=== PATIENT | male | born 1990 | race Caucasian/White ===

== ENCOUNTER 2024-01-14 11:40 | Outpatient (AMB) | payer OTHER, SELFPAY ==
[2024-01-14 11:43] VITALS: BP 118/90; PULSE 83; TEMP 36.2; O2SAT 98; BMI 34.9
--- NOTE | 2024-01-14 11:43 | MHC.OFFWIV ---
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 He states he was awakened by the pain but does not recall any injury or trauma to the area he has no swelling or erythema noted but he is in severe pain in the office today PFSH Social History Patient Tobacco Use Status: Current everyday Tobacco user Review of Systems Const All systems reviewed & are unremarkable except as noted in HPI and below Physical Exam Extrem General: Yes normal to inspection Left upper extremity: normal to inspection, full ROM (Limited to 0 due to pain) and wrist (Severe tenderness to palpation) Results Reviewed Results Reviewed: Review of his x-ray today shows an abnormality on his distal radius and possibly scaphoid. I put him in a protective thumb spica splint and referred to Orthopedics for evaluation Assessment & Plan Assessment & Plan (1) Left wrist pain: Code(s): M25.532 - Pain in left wrist Plan: The patient will wear his thumb spica splint and be seen by Orthopedics Plan See plan Orders: Orders XR wrist LT w scaphoid Today M25.532 - Pain in left wrist Referrals Orthopedics Referral M25.532 - Pain in left wrist Coding Level of Care Code Est Pt Level 3 (97009) Diagnoses Left wrist pain M25.532
== END 2024-01-14 13:20 | disposition home or self-care (01) ==
PROVIDERS: Visit Provider Physician Assistant Medical
DX: M25.532 Pain in left wrist (principal)
CPT/HCPCS: 99213

== ENCOUNTER 2024-01-14 11:52 | Outpatient (REF) | payer OTHER, SELFPAY ==
--- NOTE | ~2024-01-14 | XR_ITS ---
EXAMINATION: left wrist series CLINICAL INFORMATION: Pain in the left wrist COMPARISON: None. TECHNIQUE: Views of the left wrist including scaphoid view FINDINGS: The bones joints and soft tissues are normal. No fracture. XR/XR wrist LT w scaphoid IMPRESSION: Normal left wrist.
== END 2024-01-14 11:53 | disposition home or self-care (01) ==
LOC: HO.HMGCX 11:52
PROVIDERS: Visit Provider Physician Assistant Medical
DX: M25.532 Pain in left wrist (principal)
CPT/HCPCS: 73110

== ENCOUNTER 2024-02-04 14:00 | Outpatient (AMB) | payer OTHER, SELFPAY ==
--- NOTE | 2024-02-04 14:17 | AM.OFFWIN_ITS ---
Intake Vital Signs 02/04/24 14:18 Height 5 ft 6 in Weight 216 lb BMI 34.9 BP 120/80 Blood Pressure Location Lt brachial Position Sitting Pulse 76 Pulse Source Pulse Oximeter Temp 98.4 F Temp Source Oral Pulse Oximetry (%) 97 Oxygen Delivery Method Room Air Intake Visit Reasons: EP WC vent crashed down on head shoulder Intake Note: pt is here for workers comp claim, patient states a vent fell down on his head/shoulders while at work Patient Tobacco Use Status: Current everyday Tobacco user Allergies No Known Allergies Allergy (Verified 02/04/24 14:18) Do you need a note to return to daycare/school/sports/work: Yes HPI EP WC vent crashed down on head shoulder HPI Details This is a 33 year old male patient who presents today following a work injury which occurred last night 02/03/24. 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 He states is grazed the back of his neck and also his right ankle, however his left arm is most bothersome. Denies any lacerations from incident. He is able to move arm however it is painful. [facility] Social History Patient Tobacco Use Status: Current everyday Tobacco user Review of Systems Const All systems reviewed & are unremarkable except as noted in HPI and below Physical Exam Vital Signs: Last Vital Signs Temp 98.4 F 02/04/24 14:18 Pulse 76 02/04/24 14:18 BP 120/80 02/04/24 14:18 Pulse Ox 97 02/04/24 14:18 Oxygen Delivery Method Room Air 02/04/24 14:18 BMI result Body Mass Index 34.9 Const General: cooperative and no acute distress Nutritional Appearance: average body habitus HEENT Other: no bruising, abrasions or lacerations to head or neck Head: Yes normal to inspection, Yes normocephalic and Yes atraumatic Ears: hearing grossly normal bilaterally Neck Neck: Yes full ROM Resp Effort & Inspection: normal respiratory effort Auscultation: clear to auscultation bilaterally Cardio Rate: regular rate Rhythm: regular rhythm Skin General skin exam: no rashes or lesions noted Extrem Left upper extremity: normal to inspection, full ROM, normal capillary refill, no joint enlargement, shoulder/upper arm Details: tenderness Location: of the mid-shaft humerus and over the biceps tendon and hand Details: normal capillary refill, neuromotor exam normal Details: wrist extension normal, thumb opposition normal and thumb ADduction normal and vascular exam Details: radial pulse present and ulnar pulse present Psych Appearance: grossly normal Mental Status: mental status grossly normal Speech and movement: Normal speech and movement present Assessment & Plan Assessment & Plan (1) Left upper arm injury: Code(s): S49.92XA - Unspecified injury of left shoulder and upper arm, initial encounter Qualifiers: Encounter type: initial encounter Qualified Code(s): S49.92XA - Unspecified injury of left shoulder and upper arm, initial encounter Plan: No fracture on XR. Reassured patient this is likely soft tissue injury. Advised ice, elevation, NSAIDs (will prescribe), and gentle ROM as tolerated. No other injuries identified on exam. Work note provided. If he does not improve with time and conservative measures, he can return to the clinic for further evaluation. He agrees to plan. Patient requesting refill for pro-air inhaler. He does not have a PCP at this time and inhaler for asthma is running low. Will refill this. Orders: Orders XR humerus LT Today S49.92XA - Unspecified injury of left shoulder and upper arm, initial encounter Medications: New meloxicam Take once a day for up to 7 days as needed for pain/inflammation. 15 mg PO DAILY 7 days 7 tabs 0RF S49.92XA - Unspecified injury of left shoulder and upper arm, initial encounter albuterol sulfate 90 mcg/actuation 1 inh inhalation Q4-6H PRN 1 ea 0RF shortness of breath or wheezing J45.909 - Unspecified asthma, uncomplicated Coding Level of Care Code Est Pt Level 4 (01828) Diagnoses Injury of left upper arm, initial encounter S49.92XA Encounter type: initial encounter
[2024-02-04 14:18] VITALS: BP 120/80; PULSE 76; TEMP 36.9; O2SAT 97; BMI 34.9
== END 2024-02-04 15:20 | disposition home or self-care (01) ==
PROVIDERS: Visit Provider Nurse Practitioner Family
DX: S49.92XA Unspecified injury of left shoulder and upper arm, initial encounter (principal); Z04.2 Encounter for examination and observation following work accident
CPT/HCPCS: 99214

== ENCOUNTER 2024-02-04 14:58 | Outpatient (REF) | payer OTHER, SELFPAY ==
--- NOTE | ~2024-02-04 | XR_ITS ---
EXAMINATION: XR HUMERUS, LEFT CLINICAL INFORMATION: Injury left shoulder upper arm COMPARISON: None available. TECHNIQUE: AP and lateral views of the left humerus. FINDINGS: Small 4 mm calcific patient overlying the proximal right humerus anteriorly. Bones joints and soft tissues otherwise unremarkable XR/XR humerus LT IMPRESSION: 1. No acute abnormality. 2. Calcific density overlying the proximal right humerus. This could reflect calcific tendinitis of the subscapularis tendon or dystrophic calcification in the surrounding soft tissues.
== END 2024-02-04 14:59 | disposition home or self-care (01) ==
LOC: HO.HMGCX 14:58
PROVIDERS: Visit Provider Nurse Practitioner Family
DX: S49.92XA Unspecified injury of left shoulder and upper arm, initial encounter (principal)
CPT/HCPCS: 73060

== ENCOUNTER 2025-04-09 04:05 | Emergency (ER) | payer OTHER, SELFPAY ==
[2025-04-09 04:10] VITALS: PULSE 114; RESP 16; TEMP 36.4; O2SAT 96; BMI 37.6
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
--- OUTSIDE RECORDS SUMMARY | 2025-04-09 04:39 | XMS_ITS | Encounter Summary ---
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 7-8 cig daily Alcohol Use Standard Drinks/Week Comments Not Asked 0 (1 standard drink = 0.6 oz pur e alcohol) Sex Assigned at Date Recorded Not on file documented as of this encounter Plan of Treatment Not on file documented as of this encounter Visit Diagnoses Not on filedocumented in this encounter Care Teams Real Estate Branch Manager Relationship Specialty Start Date End Date Keon Araujo MD [address] [place] [address] PCP - General Internal Medicine 03/11/15 05/28/22 Barry Cook MD [address] [place] [id number] PCP - General Internal Medicine 05/29/22 documented as of this encounter
--- OUTSIDE RECORDS SUMMARY | 2025-04-09 04:39 | XMS_ITS | Clinical Summary ---
Author Organization [address] Address [address] [place] [phone] Phone Care Team Providers Care Interactive Media Specialist Name Role Phone Barry Cook MD Primary Care Pr ovider Allergies Active Allergy Reactions Criticality Noted Date Comments Gluten 08/10/2024 House Dust 08/23/2017 Lactase 02/25/2025 Lactose 08/23/2017 Pollen Extracts 08/23/2017 Medications albuterol HFA (PROAIR HFA ; PROVENTIL HFA ; VENTOLIN HFA) 90 mcg/actuation inhalerIndication s:Mild persistent asthma without complication Inhale 2 puffs by mouth every 4 (four) hours if needed for wheezing. 18 g 1 5 Active fluticasone-salme terol (ADVAIR DISKUS) 250-50 mcg/dose diskus inhalerIndication s:Mild persistent asthma without complication Inhale 1 puff by mouth 2 (two) times a day. Rinse mouth with water after use to reduce aftertaste and incidence of candidiasis. Do not swallow. 1 each 1 5 02/26/20 26 Active rOPINIRole (REQUIP) 1 mg tabletIndications :restless leg syndrome Take 1 tablet (1 mg total) by mouth at bedtime. 90 each 5 05/26/20 25 Active aspirin 81 mg EC tabletIndications :Chronic chest pain Take 1 tablet (81 mg total) by mouth 1 (one) time each day. 90 tablet 1 5 Active Active Problems Problem Noted Date Diagnosed Date Rectal bleeding 02/25/2025 Assessment & Plan (02/25/2025 12:26 PM EDT): Again referred to GI. See HPI Orders: Ambulatory referral to Gastroenterology; Future Schizoaffective disorder (CMS/HCC V24, CMS/HCC V 28) 07/23/2024 Assessment & Plan (07/23/2024 5:31 PM EST): As above Restless leg syndrome 07/23/2024 Assessment & Plan (02/25/2025 12:26 PM EDT): He had side effects from gabapentin. Will trial ropinirole nightly Orders: rOPINIRole (REQUIP) 1 mg tablet; Take 1 tablet (1 mg total) by mouth at bedtime. Assessment & Plan (07/23/2024 5:31 PM EST): Will consider gabapentin pending labs. Orders: Ferritin; Future Iron and TIBC; Future Tobacco use disorder 07/23/2024 Assessment & Plan (02/25/2025 12:26 PM EDT): Reports that he Quit smoking on Friday (02/20/25). Congratulated on this Assessment & Plan (07/23/2024 5:31 PM EST): Smoking cessation counselling provided Orders: nicotine polacrilex (NICORETTE) 2 mg gum; Place 1 each (2 mg total) into mouth between cheek and gum every 2 (two) hours if needed for smoking cessation. Subclinical hypothyroidism 07/23/2024 Assessment & Plan (02/25/2025 12:26 PM EDT): Due for repeat labs which are ordered Orders: Thyroid stimulating hormone with reflex to free t4 and free t3; Future Thyroid peroxidase antibody; Future Hepatomegaly 07/22/2024 Assessment & Plan (02/25/2025 12:26 PM EDT): Likely related to excessive alcohol use. Not ready to quit drinking at this time. Referred to GI Orders: Ambulatory referral to Gastroenterology; Future Alcohol use disorder 07/22/2024 Assessment & Plan (02/25/2025 12:26 PM EDT): Alcohol cessation counseling was provided. He was encouraged to check into a detox facility to be able to wean off the alcohol safely due to history of withdrawal symptoms including tremors. He states that he is not ready to quit alcohol at this time. Counseled that the alcohol use is likely contributing to his chest pains, abdominal issues, rectal bleeding. He still reports that he is not ready to quit Alcoholic fatty liver 07/22/2024 Assessment & Plan (02/25/2025 12:26 PM EDT): As above Orders: Ambulatory referral to Gastroenterology; Future Comprehensive metabolic panel; Future Sigmoid diverticulosis 07/22/2024 Severe obesity (BMI 35.0-39. 9) with comorbidity (CMS/[facility] V24, [facility] V28) 03/27/2021 Assessment & Plan (07/22/2024 11:56 AM EST): Pre-diabetes 07/12/2020 Assessment & Plan (02/25/2025 12:26 PM EDT): Due for A1c which is ordered Orders: Hemoglobin A1c; Future Assessment & Plan (07/22/2024 11:56 AM EST): Orders: Lipid panel with reflex to direct LDL; Future Hemoglobin A1c; Future Thyroid stimulating hormone with reflex to free t4 and free t3; Future Marijuana use 08/29/2017 Asthma 04/13/2015 Assessment & Plan (02/25/2025 12:26 PM EDT): Another PFT was ordered today. Prior to placing new orders, I asked if he was going to follow-up as he did not follow-up with any of the additional testing that was ordered at the last visit. He states that he will complete his cardiac/pulmonary/GI follow-up this time around Start Advair twice daily and continue albuterol as needed. Orders: Pulmonary function testing: Spirometry, Spirometry with Bronchodilator albuterol HFA (PROAIR HFA ; PROVENTIL HFA ; VENTOLIN HFA) 90 mcg/actuation inhaler; Inhale 2 puffs by mouth every 4 (four) hours if needed for wheezing. fluticasone-salmeterol (ADVAIR DISKUS) 250-50 mcg/dose diskus inhaler; Inhale 1 puff by mouth 2 (two) times a day. Rinse mouth with water after use to reduce aftertaste and incidence of candidiasis. Do not swallow. Assessment & Plan (07/22/2024 11:56 AM EST): Poorly controlled. Start symbicort and albuterol PRN Orders: albuterol HFA (PROAIR HFA ; PROVENTIL HFA ; VENTOLIN HFA) 90 mcg/actuation inhaler; Inhale 2 puffs by mouth every 4 (four) hours if needed for wheezing. budesonide-formoteroL (SYMBICORT) 80-4.5 mcg/actuation inhaler; Inhale 2 puffs by mouth 2 (two) times a day. Rinse mouth with water after use to reduce aftertaste and incidence of candidiasis. Do not swallow. Pulmonary function testing: Pulmonary Stress Test, Complex, Spirometry, Spirometry with Bronchodilator Bipolar disorder ([facility] V24, [facility] V28) 10/2014 Assessment & Plan (07/22/2024 11:56 AM EST): Notes hx of this in his teenage years. Was previously on Seroquel and other antipsychotics. States that he took himself off these he medications because they were not really helpful. States his mood is stable. He does not want any treatment for now Encounters Date Type Department Care Team Description 02/25/2025 10:30 AM EDT Office Visit Adult Medicine [address] [phone] Barry Cook MD Alcohol use disorder (Primary Dx); Mild persistent asthma without complication; Hepatomegaly; Alcoholic fatty liver; Pre-diabetes; Subclinical hypothyroidism; Rectal bleeding; Restless leg syndrome; Leukocytosis, unspecified type; Chronic chest pain; Tobacco use disorder 02/23/2025 Telephone Adult Medicine [address] [phone] Barry Cook MD 02/15/2025 Telephone Adult Medicine [address] [phone] Sherron Hermosillo MA from Last 3 Months Immunizations Name Administration Dates Next Due Pneumococcal polysaccharide 23 valent (Pneumovax 23) 2yo and older 03/27/2021 Tdap Tetanus diptheria acell ular pertussis (Boostrix; Adacel) 7yo and older 03/27/2021 Surgical History Surgery Date Site/Laterality Comments HERNIA REPAIR Bilateral PROCEDURE: REPAIR INGUINAL HERNIA Medical History Medical History Date Comments Bipolar disorder ([facility] V24, [facility] V28) 2014 DX:Bipolar disorder ([facility]) Asthma 04/13/2015 DX:Asthma Family History Medical History Relation Name Comments Colon cancer Aunt maternal age 36 Alcohol abuse Father Relation Name Status Comments Aunt maternal Father Maternal Grandfather Maternal Grandmother Mother Alive Paternal Grandfather Paternal Grandmother Social History Tobacco Use Types Packs/Day Years Used Date Smoking Tobacco: Every Day Cigarettes Smokeless Tobacco: Never Alcohol Use Standard Drinks/Week Comments Yes 0 (1 standard drink = 0.6 oz pur e alcohol) Housing Instability Answer Date Recorde d Are you worried that in the next 2 months you may not have stable housing? No 10/22/2024 Food Access & Nutrition Answer Date Rec orded Do you have access to a vari ety of food including fruits and vegetables? Yes 10/22/2024 Health Literacy Answer Date Recorded How often do you need to hav e someone help you when you read instructions, pamphlets, or other written material from your doctor or pharmacy? Never 10/22/2024 Caregiver: How often do you need to have someone help you when you read instructions, pamphlets, or other written material from your doctor or pharmacy? Not on file 10/22/2024 Financial Risk Answer Date Recorded How hard is it for you to pa y for the very basics like food, housing, medical care, and air conditioning / heating? Not very hard 10/22/2024 Transportation Answer Date Recorded Has the lack of transportati on kept you from meetings, work, or from getting things needed for daily living? No Has the lack of transportati on kept you from medical appointments or from getting medications? No 10/22/2024 Social Isolation Answer Date Recorded How often do you feel lonely or isolated from those around you? Sometimes 10/22/2024 Food Risk Answer Date Recorded Within the past 12 months we worried whether our food would run out before we got money to buy more. Never true 10/22/2024 Within the past 12 months th e food we bought just didn't last and we didn't have money to get more. Never true 10/22/2024 Dependent Care Answer Date Recorded Do you need help finding or paying for care for your loved ones. For example, child care provider or elderly care for an older adult? No 10/22/2024 Education Answer Date Recorded Do you think completing more education or training, like finishing a GED, going to college, or learning a trade, would be helpful for you? Yes 10/22/2024 Employment and Income Answer Date Recor ded During the last four weeks, have you been actively looking for work? No 10/22/2024 Living Situation Answer Date Recorded What is your living situation? 0 10/22/2024 Sex and Gender Information Value Date Recorded Sex Assigned at Male 07/22/2024 10:33 AM EST Legal Sex Male 4:46 PM EST Gender Identity Male 07/22/2024 10:33 AM EST Sexual Orientation Straight 07/22/2024 10 :33 AM EST Obstetrics History Last Filed Vital Signs Vital Sign Reading Time Taken Comments Blood Pressure 120/63 02/25/2025 10:44 AM EDT a Pulse 94 02/25/2025 10:31 AM EDT Temperature 36.4 C (97.5 F) 02/25/2025 10:31 AM EDT Respiratory Rate 14 02/25/2025 10:31 AM EDT Oxygen Saturation 97% 02/25/2025 10:31 AM EDT Inhaled Oxygen Concentration - - Weight 106 kg (233 lb) 02/25/2025 10:31 AM EDT Height 167.6 cm (5' 6 ) 02/25/2025 10:31 AM EDT Body Mass Index 37.61 02/25/2025 10:31 AM EDT Plan of Treatment Upcoming Encounters Date Type Department Care Team (Late st Contact Info) Description 06/02/2025 9:00 AM EDT Ancillary Procedure [facility] [address] [place] [phone] 06/09/2025 2:00 PM EDT Office Visit Adult Medicine [address] [phone] Barry Cook MD [address] [place] [address] Health Maintenance Due Date Last Done Comments Hepatitis A Vaccines (1 of 2 - Risk 2-dose series) 2010 HIV Screening 07/20/2022 Social Influencers of Health Screening 10/22/2025 10/22/2024 Cholesterol Screening (Lipid Panel) 07/22/2029 07/22/2024, 10/11/2021 DTaP,Tdap,and Td Vaccines (2 - Td or Tdap) 03/27/2031 03/27/2021 Pneumococcal Vaccine: Pediatrics (0 to 5 Years) and At-Risk Patients (6 to 49 Years) Discontinued 03/27/2021 Hepatitis C Screening Completed 07/22/2024 Depression Screening Completed 10/22/2024 COVID-19 Vaccine Discontinued HIB Vaccines Aged Out No longer eligi ble based on patient's age to complete this topic HPV Vaccines Aged Out No longer eligi ble based on patient's age to complete this topic Hepatitis B Vaccines Discontinued IPV Vaccines Aged Out No longer eligi ble based on patient's age to complete this topic Influenza Vaccine Discontinued MMR Vaccines Aged Out No longer eligi ble based on patient's age to complete this topic Meningococcal ACWY Vaccine Aged Out N o longer eligible based on patient's age to complete this topic Meningococcal B Vaccine Aged Out No l onger eligible based on patient's age to complete this topic RSV Immunization Patients Under 20 months Aged Out No longer eligible based on patient's age to complete this topic Varicella Vaccines Aged Out No longer eligible based on patient's age to complete this topic Procedures Procedure Name Priority Date/Time Associated Diagnosis Comments TRIIODOTHYRONINE FREE Routine 02/25/2025 11:38 AM EDT Subclinical hypothyroidism FREE THYROXINE WITH REFLEX TO FREE TRIIODOTHYRONINE Routine 02/25/2025 11:38 AM EDT Subclinical hypothyroidism COMPREHENSIVE METABOLIC PANEL Routine 02/25/2025 11:38 AM EDT Alcoholic fatty liver WBC COUNT WITH ABSOLUTE NEUTROPHIL Routine 02/25/2025 11:38 AM EDT Leukocytosis, unspecified type HEMOGLOBIN A1C Routine 02/25/2025 11:38 AM EDT Pre-diabetes THYROID STIMULATING HORMONE WITH REFLEX TO FREE T4 AND FREE T3 Routine 02/25/2025 11:38 AM EDT Subclinical hypothyroidism THYROID PEROXIDASE ANTIBODY Routine 02/25/2025 11:38 AM EDT Subclinical hypothyroidism D-DIMER Routine 02/25/2025 11:38 AM EDT Chest pain on breathing HEPATITIS C ANTIBODY Routine 07/22/2024 11:51 AM EST Need for hepatitis C screening test LIPID PANEL WITH REFLEX TO DIRECT LDL Routine 07/22/2024 11:51 AM EST Pre-diabetes from Last 3 Months or Most Recently Relevant to Health Maintenance Results * Wbc count with absolute neutrophil (02/25/2025 11:38 AM EDT) WBC 7.9 4.8 - 10.8 K/mcL LAB HEMETOLOGY METHOD 02/25/2025 2:18 PM EDT [facility] Neutrophils Absolute 4.88 1.50 - 7.00 K/mcL LAB HEMETOLOGY METHOD 02/25/2025 2:18 PM EDT [facility] Neutrophils Relative 61.5 % LAB HEMETOLOGY METHOD 02/25/2025 2:18 PM EDT [facility] Blood Venous blood specimen / Unknown Venipuncture / Unknown 02/25/2025 11:38 AM EDT 02/25/2025 11:38 AM EDT Barry Cook MD LAB BLOOD ORDERA BLES Final Result [facility] [address] [place] [address], [place] [phone] * (ABNORMAL) Thyroid stimulating hormone with reflex to free t4 and free t3 (02/25/2025 11:38 AM EDT) TSH 4.31(H) 0.40 - 4.00 mcIU/mL LAB CHEMISTRY METHOD 02/25/2025 5:38 PM EDT [facility] Blood Venous blood specimen / Unknown Venipuncture / Unknown 02/25/2025 11:38 AM EDT 02/25/2025 11:38 AM EDT Barry Cook MD LAB BLOOD ORDERA BLES Final Result Performing Organization Address [facility]/ZIP Co de Phone Number [facility] [address] [place] [address], [place] [phone] * Free thyroxine with reflex to free triiodothyronine (02/25/2025 11:38 AM EDT) Free T4 1.02 0.70 - 1.80 ng/dL LAB CHEMISTRY METHOD 02/25/2025 6:26 PM EDT [facility] Blood Venous blood specimen / Unknown Venipuncture / Unknown 02/25/2025 11:38 AM EDT 02/25/2025 11:38 AM EDT Barry Cook MD LAB BLOOD ORDERA BLES Final Result Performing Organization Address City/[facility]/ZIP Co de Phone Number [facility] [address] [place] [address], [place] [phone] * Thyroid peroxidase antibody (02/25/2025 11:38 AM EDT) Thyroid Peroxidase Ab 35.0 <=60.0 I Unit/mL LAB CHEMISTRY METHOD 02/25/2025 4:51 PM EDT [facility] Blood Venous blood specimen / Unknown Venipuncture / Unknown 02/25/2025 11:38 AM EDT 02/25/2025 11:38 AM EDT Barry Cook MD LAB BLOOD ORDERA BLES Final Result Performing Organization Address [facility]/ZIP Co de Phone Number [facility] [address] [place] [address], [place] [phone] * D-Dimer (02/25/2025 11:38 AM EDT) Pathologist [facility] D-Dimer, Quant (D-DU) <150 <=230 ng/mL DDU LAB COAGULATION METHOD 02/25/2025 2:35 PM EDT [facility] Blood Venous blood specimen / Unknown Venipuncture / Unknown 02/25/2025 11:38 AM EDT 02/25/2025 11:38 AM EDT Narrative [facility] - 02/25/2025 2:35 PM EDT D-Dimer <230 ng/mL (D-Dimer units) is the threshold for exclusion of DVT/PE. D-Dimer may be elevated in: Critically ill, severely infected, trauma patients, DIC, acute CVA, acute PR, unstable angina, AF, old age, , and smoking. D-Dimer may be decreased with: Initiation of heparin therapy and oral anticoagulants. Barry Cook MD LAB BLOOD ORDERA BLES Final Result Performing Organization Address City/[facility]/ZIP Co de Phone Number [facility] [address] [place] [address], [place] [phone] * Triiodothyronine free (02/25/2025 11:38 AM EDT) T3, Free 408 230 - 420 pcg/dL LAB CHEMISTRY METHOD 02/25/2025 8:17 PM EDT [facility] Blood Venous blood specimen / Unknown Venipuncture / Unknown 02/25/2025 11:38 AM EDT 02/25/2025 11:38 AM EDT Barry Cook MD LAB BLOOD ORDERA BLES Final Result Performing Organization Address City/[facility]/ZIP Co de Phone Number [facility] [address] [place] [address], [place] [phone] * Hemoglobin A1c (02/25/2025 11:38 AM EDT) [facility] Hemoglobin A1C 5.6 <6.5 % LAB CHEMISTRY METHOD 02/25/2025 10:54 PM EDT [facility] Mean Bld Glu Estim. 114 mg/dL LAB CHEMISTRY METHOD 02/25/2025 10:54 PM EDT [facility] Blood Venous blood specimen / Unknown Venipuncture / Unknown 02/25/2025 11:38 AM EDT 02/25/2025 11:38 AM EDT Brary Cook MD LAB BLOOD ORDERA BLES Final Result [facility] [address] [place] [address], [place] [phone] * (ABNORMAL) Comprehensive metabolic panel (02/25/2025 11:38 AM EDT) Pathologist [facility] Sodium 139 133 - 145 mmol/L LAB CHEMISTRY METHOD 02/25/2025 3:47 PM EDT [facility] Potassium 3.9 3.5 - 5.5 mmol/L LAB CHEMISTRY METHOD 02/25/2025 3:47 PM [facility] Chloride 105 96 - 110 mmol/L LAB CHEMISTRY METHOD 02/25/2025 3:47 PM [facility] CO2 25 21 - 32 mmol/L LAB CHEMISTRY METHOD 02/25/2025 3:47 PM [facility] Anion Gap 9 3 - 11 LAB CHEMISTRY METHOD 02/25/2025 3:47 PM [facility] Glucose 95 70 - 100 mg/dL LAB CHEMISTRY METHOD 02/25/2025 3:47 PM [facility] BUN 8 5 - 25 mg/dL LAB CHEMISTRY METHOD 02/25/2025 3:47 PM [facility] Creatinine 0.94 0.70 - 1.30 mg/dL LAB CHEMISTRY METHOD 02/25/2025 3:47 PM [facility] eGFR 110 >=60 mL/min/1. 73m2 LAB CHEMISTRY METHOD 02/25/2025 3:47 PM [facility] Comment:Calculation based on the Chronic Kidney Disease Epidemiology Collaboration (CKD-EPI) equation refit without adjustment for race. BUN/Creatinine Ratio 8.5 LAB CHEMISTRY METHOD 02/25/2025 3:47 PM [facility] Calcium 9.2 8.5 - 10.5 mg/dL LAB CHEMISTRY METHOD 02/25/2025 3:47 PM [facility] AST (SGOT) 123(H) 10 - 42 unit/L LAB CHEMISTRY METHOD 02/25/2025 3:47 PM [facility] ALT (SGPT) 226(H) 10 - 60 unit/L LAB CHEMISTRY METHOD 02/25/2025 3:47 PM [facility] Alkaline Phosphatase 130(H) 42 - 121 unit/L LAB CHEMISTRY METHOD 02/25/2025 3:47 PM [facility] Total Protein 7.5 6.0 - 8.0 g/dL LAB CHEMISTRY METHOD 02/25/2025 3:47 PM EDT [facility] Albumin 3.8 3.2 - 5.0 g/dL LAB CHEMISTRY METHOD 02/25/2025 3:47 PM EDT [facility] Total Bilirubin 0.4 0.0 - 1.4 mg/dL LAB CHEMISTRY METHOD 02/25/2025 3:47 PM EDT [facility] Blood Venous blood specimen / Unknown Venipuncture / Unknown 02/25/2025 11:38 AM EDT 02/25/2025 11:38 AM EDT Barry Cook MD LAB BLOOD ORDERA BLES Final Result Performing Organization Address [facility]/ZIP Co de Phone Number [facility] [address] [place] [address], [place] [phone] * Hepatitis C antibody (07/22/2024 11:51 AM EST) Pathologist [facility] Hepatitis C Antibody Negative Negative LAB CHEMISTRY METHOD 07/22/2024 4:30 PM EST [facility] Blood Venous blood specimen / Unknown Venipuncture / Unknown 07/22/2024 11:51 AM EST 07/22/2024 11:51 AM EST Barry Cook MD LAB BLOOD ORDERA BLES Final Result [facility] [address] [place] [address], [place] [phone] * (ABNORMAL) Lipid panel with reflex to direct LDL (07/22/2024 11:51 AM EST) Pathologist [facility] Cholesterol 185 0 - 200 mg/dL LAB CHEMISTRY METHOD 07/22/2024 3:42 PM EST [facility] Triglycerides 129 0 - 150 mg/dL LAB CHEMISTRY METHOD 07/22/2024 3:42 PM EST [facility] HDL 51 >=40 mg/dL LAB CHEMISTRY METHOD 07/22/2024 3:42 PM EST [facility] LDL Calculated 108(H) 0 - 100 mg/dL LAB CHEMISTRY METHOD 07/22/2024 3:42 PM [facility] VLDL Cholesterol Alber 25.8 mg/dL LAB CHEMISTRY METHOD 07/22/2024 3:42 PM [facility] Non HDL Chol. (LDL+VLDL) 134 <145 mg/dL LAB CHEMISTRY METHOD 07/22/2024 3:42 PM [facility] Chol/HDL Ratio 3.6 0.0 - 4.4 LAB CHEMISTRY METHOD 07/22/2024 3:42 PM EST [facility] Blood Venous blood specimen / Unknown Venipuncture / Unknown 07/22/2024 11:51 AM EST 07/22/2024 11:51 AM EST Barry Cook MD LAB BLOOD ORDERA BLES Final Result [facility] [address] [place] [address], from Last 3 Months or Most Recently Relevant to Health Maintenance Insurance [facility] [employer] Care Teams Interactive Media Specialist Relationship Specialty Start Date End Date Barry Cook MD [address] [place], [place] PCP - General Internal Medicine 05/29/22
--- OUTSIDE RECORDS SUMMARY | 2025-04-09 04:39 | XMS_ITS | Encounter Summary ---
Author Organization [facility] Address [address] [place] [address] Care Team Providers Care Ship Liner Name Role Phone Keon Araujo MD Primary Care Provider [phone] Barry Cook MD Primary Care Provider + Encounter Details Date Type Department Care Team Description 01/29/2022 Orders Only Medical Records [address] [place] [phone] Nigel Parekh MD [address] [place] [address] [place] [id number] Social History Tobacco Use Types Packs/Day Years Used Date Smoking Tobacco: Every Day Cigarettes 0.5 Smokeless Tobacco: Never Comments:pt smoking for 11 y ears. 7-8 cig daily Alcohol Use Standard Drinks/Week Comments Not Currently 0 (1 standard drink = 0.6 oz pur e alcohol) Sex Assigned at Date Recorded Not on file documented as of this encounter Plan of Treatment Not on file documented as of this encounter Procedures Procedure Name Priority Date/Time Associated Diagnosis Comments OUTSIDE PATHOLOGY Routine 01/17/2022 documented in this encounter Results * OUTSIDE PATHOLOGY (01/17/2022) Nigel Parekh MD OUTSIDE LAB documented in this encounter Visit Diagnoses Not on filedocumented in this encounter Care Teams Ship Liner Relationship Specialty Start Date End Date Keon Araujo MD [address] [place] [id number] PCP - General Internal Medicine 03/11/15 05/28/22 Barry Cook MD [address] [place] [address] PCP - General Internal Medicine 05/29/22 documented as of this encounter
--- OUTSIDE RECORDS SUMMARY | 2025-04-09 04:39 | XMS_ITS ---
Author Name [facility] Organization Unknown Care Team Organization Name Specialty Phone Email Start Date End Da te [facility] ELENA PAGE Primary Care 06/18/2022 4
--- OUTSIDE RECORDS SUMMARY | 2025-04-09 04:39 | XMS_ITS | Encounter Summary ---
Author Organization [facility] Address [address] [place] [address] Care Team Providers Care Cardiovascular Or Nurse Name Role Phone Keon Araujo MD Primary Care Provider [phone] Barry Cook MD Primary Care Provider + Reason for Visit * Reason Onset Date Comments APPOINTMENT 09/06/2020 Encounter Details Date Type Department Care Team Description 09/06/2020 Telephone Gastroenterology - [address] [place] [phone] Michelet Arreola PA-C APPOINTMENT Social History Tobacco Use Types Packs/Day Years Used Date Smoking Tobacco: Every Day Cigarettes 0.5 Smokeless Tobacco: Never Comments:pt smoking for 11 y ears. 7-8 cig daily Alcohol Use Standard Drinks/Week Comments Not Asked 0 (1 standard drink = 0.6 oz pur e alcohol) Sex Assigned at Date Recorded Not on file COVID-19 Exposure Response Date Recorded In the last month, have you been in contact with someone who was confirmed or suspected to have Coronavirus / COVID-19? No / Unsure 08/17/2020 1:51 PM EST documented as of this encounter Miscellaneous Notes * Telephone Encounter - Lilibeth Murcia - 09/06/2020 9:00 AM EST Left message for patient to call back and reschedule his consult with Michelet, please schedule if he calls, thank you documented in this encounter Plan of Treatment Not on file documented as of this encounter Visit Diagnoses Not on filedocumented in this encounter Care Teams Cardiovascular Or Nurse Relationship Specialty Start Date End Date Keon Araujo MD [address] [place] [id number] PCP - General Internal Medicine 03/11/15 05/28/22 Barry Cook MD [address] [place] [id number] PCP - General Internal Medicine 05/29/22 documented as of this encounter
--- OUTSIDE RECORDS SUMMARY | 2025-04-09 04:39 | XMS_ITS | Encounter Summary ---
Author Organization [facility] Address [address] [place] [address] Care Team Providers Care Lumber Carrier Operator Name Role Phone Keon Araujo MD Primary Care Provider [phone] Barry Cook MD Primary Care Provider + Reason for Visit * Reason Onset Date Comments Provider Call Back 01/28/2022 Encounter Details Date Type Department Care Team Description 01/28/2022 Telephone Gastroenterology - [address] [place] [phone] Mariely Westbrook DScPAS Provider Call Back Social History Tobacco Use Types Packs/Day Years Used Date Smoking Tobacco: Every Day Cigarettes 0.5 Smokeless Tobacco: Never Comments:pt smoking for 11 y ears. 7-8 cig daily Alcohol Use Standard Drinks/Week Comments Not Currently 0 (1 standard drink = 0.6 oz pur e alcohol) Sex Assigned at Date Recorded Not on file documented as of this encounter Miscellaneous Notes * Telephone Encounter - Zeke Engle M.A. - 01/30/2022 11:48 AM EDT Detailed msg left for pt. * Telephone Encounter - Rip Eason PA-C - 01/30/2022 11:29 AM EDT No urgent findings. Just a polyp and hemorrhoids. * Telephone Encounter - Zeke Engle M.A. - 01/29/2022 9:12 AM EDT Left vm for pt, jordyn will be out 2 weeks and is out this week. We will call once it is reviewed. * Telephone Encounter - Elyse Rivera - 01/28/2022 4:21 PM EDT Please call patient to go over colonoscopy results. He would rather that, than wait until April.The phone is [phone]. Thanks. documented in this encounter Plan of Treatment Not on file documented as of this encounter Visit Diagnoses Not on filedocumented in this encounter Care Teams Lumber Carrier Operator Relationship Specialty Start Date End Date Keon Araujo MD [address] [place] [id number] PCP - General Internal Medicine 03/11/15 05/28/22 Barry Cook MD [address] [place] [id number] PCP - General Internal Medicine 05/29/22 documented as of this encounter
--- OUTSIDE RECORDS SUMMARY | 2025-04-09 04:39 | XMS_ITS | Encounter Summary ---
Author Organization [facility] Address [address] [place] [address] Care Team Providers Care Third Steel Pourer Name Role Phone Keon Araujo MD Primary Care Provider [phone] Barry Cook MD Primary Care Provider + Reason for Visit * Reason Onset Date Comments Medication 01/03/2022 Encounter Details Date Type Department Care Team Description 01/03/2022 Refill Gastroenterology - [place] [address] [facility] [address] [place] [phone] Nigel Parekh MD [address] [facility] [address] [place] [address] Medication Social History Tobacco Use Types Packs/Day Years [...] on filedocumented in this encounter Care Teams Third Steel Pourer Relationship Specialty Start Date End Date Keon Araujo MD [address] [place] [phone] PCP - General Internal Medicine 03/11/15 05/28/22 Barry Cook MD [address] [place] [phone] PCP - General Internal Medicine 05/29/22 documented as of this encounter
[2025-04-09 04:44] VITALS: BP 140/79; PULSE 114; RESP 16; TEMP 36.4; O2SAT 96
== END 2025-04-09 04:46 | disposition home or self-care (01) ==
PROVIDERS: Emergency Provider Emergency Medicine
DX: S50.311A Abrasion of right elbow, initial encounter (principal); Y04.2XXA Assault by strike against or bumped into by another person, initial encounter; Y93.9 Activity, unspecified; Y92.9 Unspecified place or not applicable; Y99.8 Other external cause status
CPT/HCPCS: 99283